=== PATIENT | female | born 1935 | race Caucasian/White ===

== ENCOUNTER 2017-09-26 16:00 | Inpatient (IN) | payer OTHER ==
[~2017-09-26] VITALS: Ht 165.1 cm; Wt 76.3 kg
[~2017-09-26 16:00] MED LIST: AMARYL2 MG PO; COZAAR50 MG PO; CYMBALTA60 MG PO; FUROSEMIDE40 MG PO; GABAPENTIN300 MG PO; GLIPIZIDE10 MG PO; LANTUS 3 M100 UNITS1 SC; NORVASC10 MG PO; PREDNISONE20 MG PO; SYNTHROID50 MCG PO; TRAMADOL HCL50 MG PO; ULTRAM50 MG PO
[2017-09-26 17:16] VITALS: BP 137/65
[2017-09-26 17:55] LABS: ANION GAP 9 MEQ/L (2-14); CHLORIDE 107 MEQ/L (99-109); SAMPLE HEMOLYSIS CHECK 0; SAMPLE ICTERIC CHECK 0; SAMPLE LIPEMIA CHECK 0; SODIUM 139 MEQ/L (136-147)
[2017-09-26 17:58] LABS: POINT-OF-CARE METER ID UU14188577
[2017-09-26 18:00] LABS: GFR ESTIMATE (CALCULATED) 50 mL/min/; GLUCOSE 139 mg/dL (70-99); UREA NITROGEN (BUN) 17 mg/dL (9-23)
[2017-09-26 18:07] LABS: INTER. NORMALIZED RATIO 1.1; PROTHROMBIN TIME 12.9 SEC (10.2-12.9)
[2017-09-26 18:10] LABS: PTT 32.8 SEC (25-37)
[2017-09-26 20:31] LABS: POINT-OF-CARE METER ID UU13113675
[2017-09-26 21:23] LABS: POINT-OF-CARE METER ID UU14188577
[2017-09-26 21:27] VITALS: BP 116/78
[2017-09-26 23:22] VITALS: BP 125/60
[2017-09-27 03:37] VITALS: BP 120/58
[2017-09-27 06:14] LABS: POINT-OF-CARE METER ID UU14188577
[2017-09-27 07:00] LABS: HEMATOCRIT 36.4 % (36.0-46.0); MCV 94.3 FL (83-99)
[2017-09-27 07:34] LABS: ANION GAP 7 MEQ/L (2-14); CHLORIDE 109 MEQ/L (99-109); GFR ESTIMATE (CALCULATED) 42 mL/min/; GLUCOSE 127 mg/dL (70-99); SAMPLE HEMOLYSIS CHECK 0; SAMPLE ICTERIC CHECK 0; SAMPLE LIPEMIA CHECK 0; SODIUM 142 MEQ/L (136-147); UREA NITROGEN (BUN) 17 mg/dL (9-23)
[2017-09-27 07:44] VITALS: BP 104/56
[2017-09-27 11:07] VITALS: BP 105/54
[2017-09-27 11:18] LABS: POINT-OF-CARE METER ID UU14188577
[2017-09-27 15:33] VITALS: BP 142/63
[2017-09-27 16:29] LABS: POINT-OF-CARE METER ID UU14188577
[2017-09-27 21:32] LABS: POINT-OF-CARE METER ID UU14117124
[2017-09-28] VITALS: BP 123/60
[2017-09-28 06:18] LABS: POINT-OF-CARE METER ID UU14117124
[2017-09-28 07:01] LABS: HEMATOCRIT 35.4 % (36.0-46.0); MCV 93.9 FL (83-99)
[2017-09-28 08:13] VITALS: BP 144/67
[2017-09-28] MEDS ORDERED: LOVENOX40 MG/0.4 SC (15:54)
[2017-09-28] MEDS ORDERED: CELECOXIB200 MG PO (15:55)
[2017-09-28] MEDS ORDERED: Salonpas 4% Patch TD (15:56)
[2017-09-28] MEDS ORDERED: ENDOCET 5-3251 EACH PO (15:58)
== END 2017-09-28 17:12 | disposition home health service (06) | DRG 489 ==
LOC: 3EAST 16:00 → ENRESERV 16:01 → 3EAST 16:36
PROVIDERS: Orthopaedic Surgery Sports Medicine
DX: M00.9 Pyogenic arthritis, unspecified (principal); S83.249D Other tear of medial meniscus, current injury, unspecified knee, subsequent encounter; M65.9 Synovitis and tenosynovitis, unspecified; S83.519D Sprain of anterior cruciate ligament of unspecified knee, subsequent encounter; M94.20 Chondromalacia, unspecified site; G62.9 Polyneuropathy, unspecified; E11.9 Type 2 diabetes mellitus without complications; I10 Essential (primary) hypertension; F17.200 Nicotine dependence, unspecified, uncomplicated; Z90.710 Acquired absence of both cervix and uterus; Z83.3 Family history of diabetes mellitus; Z82.49 Family history of ischemic heart disease and other diseases of the circulatory system; Z80.9 Family history of malignant neoplasm, unspecified
CPT/HCPCS: 36415; 80048; 82948; 85014; 85018; 85025; 85610; 85651; 85730; 86140; 87070; 87075; 87205; 89051; 94799; J0131; J0171; J0295; J0690; J1100; J1170; J1650; J1815; J1885; J2405; J3010; J7050